=== PATIENT | male | born 1945 | race Caucasian/White ===

== ENCOUNTER 2019-12-05 21:38 | Observation (INO) ==
[2019-12-05] MEDS ORDERED: Aspirin 81 MG TAB.CHEW PO ONE (21:51)
[2019-12-05 22:10] LABS: Basophils % 0.2 %; Eosinophils # 0.2 K/mcL (0.0-0.6); Eosinophils % 1.4 %; Hematocrit 36.9 % (37.5-50.1); Hemoglobin 12.2 g/dL (12.9-16.9); Immature Granulocytes % 0.5 % (0-4); Lymphocytes % 9.3 %; Mean Corpuscular HGB Conc 33.1 g/dL (31.6-35.5); Mean Corpuscular Hemoglobin 30.6 pg (28.0-33.3); Mean Corpuscular Volume 92.5 fL (83.0-100.0); Mean Platelet Volume 10.7 fL (9.4-12.4); Monocytes # 0.5 K/mcL (0.0-1.3); Monocytes % 4.5 %; Neutrophils # 9.2 K/mcL (1.6-8.9); Platelet Count 226 K/mcL (140-400); Red Blood Count 3.99 M/mcL (4.19-5.50); Red Cell Distribution Width 12.6 % (11.5-14.5); Segmented Neutrophils % 84.1 %
[2019-12-05 22:18] LABS: INR 1.9; Prothrombin Time 21.9 Seconds (9.4-12.1)
[2019-12-05 22:21] LABS: Activated Partial Thrombo Time 33.1 Seconds (26.0-36.0)
[2019-12-05 22:36] LABS: Calcium 9.1 mg/dL (8.6-10.3); Potassium 4.4 mEq/L (3.5-5.1)
[2019-12-05 22:41] LABS: Troponin I 0.04 ng/mL (< 0.04)
[2019-12-05] MEDS ORDERED: Isovue-370 500 ML BOTTLE IVP ONE (22:44)
[2019-12-05] MEDS ORDERED: 0.9 % Sodium Chloride 1,000 ML IVC ONE (22:44)
[2019-12-06] MEDS ORDERED: Piperacillin/Tazobactam 3.375 GM in Water for inj. (sterile) 20 ML IVP ONE (00:40)
[2019-12-06] MEDS ORDERED: Vancomycin 1,500 MG/265 ML IV.SOLN IVPB ONE (01:00)
[2019-12-06 01:57] LABS: Adenovirus Not Detected (Not Detect); Coronavirus 229E Not Detected (Not Detect); Coronavirus HKU1 Not Detected (Not Detect); Coronavirus NL63 Not Detected (Not Detect); Coronavirus OC43 Not Detected (Not Detect)
[2019-12-06 01:58] LABS: Bordetella Pertussis Not Detected (Not Detect); Chlamydophila pneumoniae Not Detected (Not Detect); Human Metapneumovirus Not Detected (Not Detect); Human Rhinovirus/Enterovirus Not Detected (Not Detect); Influenza A Subtype 2009 H1 Not Detected (Not Detect); Influenza B Not Detected (Not Detect); Mycoplasma pneumoniae Not Detected (Not Detect); Parainfluenza Virus 1 Not Detected (Not Detect); Parainfluenza Virus 2 Not Detected (Not Detect); Parainfluenza Virus 3 Not Detected (Not Detect); Parainfluenza Virus 4 Not Detected (Not Detect); Respiratory Syncytial Virus Not Detected (Not Detect)
[2019-12-06] MEDS ORDERED: Naloxone 0.4 MG/ML INJ IVP PRN (03:03)
[2019-12-06] MEDS ORDERED: 0.9 % Sodium Chloride 1,000 ML IVC SCH (03:15)
[2019-12-06] MEDS ORDERED: Dextrose Gel 15 GM/37.5 ML TUBE PO PRN ×2 (05:15)
[2019-12-06] MEDS ORDERED: *HR* Dextrose 50 % in Water (Vial) 50 ML VIAL IVP PRN (05:15)
[2019-12-06] MEDS ORDERED: D5% in Water 1,000 ML IVC PRN (05:15)
[2019-12-06] MEDS ORDERED: Insulin LISPRO 300 UNITS/3 ML VIAL SQ SCH ×2 (06:00→21:00)
[2019-12-06] MEDS: Azithromycin 500 MG in 0.9 % Sodium Chloride 250 ML IVPB SCH (06:20)
[2019-12-06 06:24] LABS: Basophils % 0.1 %; Eosinophils # 0.2 K/mcL (0.0-0.6); Eosinophils % 2.1 %; Hematocrit 35.7 % (37.5-50.1); Hemoglobin 11.7 g/dL (12.9-16.9); Immature Granulocytes % 0.6 % (0-4); Lymphocytes # 0.8 K/mcL (0.6-4.6); Lymphocytes % 9.8 %; Mean Corpuscular HGB Conc 32.8 g/dL (31.6-35.5); Mean Corpuscular Hemoglobin 30.4 pg (28.0-33.3); Mean Corpuscular Volume 92.7 fL (83.0-100.0); Mean Platelet Volume 10.5 fL (9.4-12.4); Monocytes # 0.3 K/mcL (0.0-1.3); Neutrophils # 6.9 K/mcL (1.6-8.9); Platelet Count 183 K/mcL (140-400); Red Blood Count 3.85 M/mcL (4.19-5.50); Red Cell Distribution Width 12.7 % (11.5-14.5); Segmented Neutrophils % 83.4 %; White Blood Count 8.3 K/mcL (4.3-11.1)
[2019-12-06 06:51] LABS: Troponin I 0.04 ng/mL (< 0.04)
[2019-12-06] MEDS ORDERED: Dexamethasone 4 MG/ML VIAL IVP SCH (09:00)
[2019-12-06] MEDS ORDERED: Perflutren Lipid Microsphere 1.3 ML in 0.9 % Sodium Chloride 8.7 ML IVP PRN (09:38)
[2019-12-06] MEDS: Piperacillin/Tazobactam 3.375 GM in 0.9 % Sodium Chloride Mini Bag 100 ML IVPB SCH ×3 (09:46→23:17)
[2019-12-06] MEDS ORDERED: Furosemide 40 MG/4 ML VIAL IVP ONE (11:08)
[2019-12-06] MEDS: Insulin LISPRO 300 UNITS/3 ML VIAL SQ SCH ×2 (13:00→17:00)
[2019-12-06] MEDS: carvediloL 25 MG TABLET PO SCH (17:00)
[2019-12-06] MEDS ORDERED: *HR* Rivaroxaban 10 MG TABLET PO SCH (17:00)
[2019-12-06] MEDS ORDERED: Aspirin Enteric Coated 81 MG Tablet PO SCH (18:00)
[2019-12-06 18:26] VITALS: BP 139/73
[2019-12-06] MEDS: Apixaban 5 MG TABLET PO SCH (21:58)
[2019-12-06] MEDS: Gabapentin 300 MG CAPSULE PO SCH (21:58)
[2019-12-06] MEDS ORDERED: Melatonin 3 MG TABLET PO PRN (22:47)
[2019-12-06] MEDS ORDERED: Acetaminophen 325 MG TABLET PO ONE (22:50)
[2019-12-07] MEDS ORDERED: Vancomycin 1,250 MG/262.5 ML IV.SOLN IVPB SCH (01:00)
[2019-12-07] MEDS: Azithromycin 500 MG in 0.9 % Sodium Chloride 250 ML IVPB SCH (05:12)
[2019-12-07 08:02] LABS: Alanine Aminotransferase 15 Units/L (7-52); Albumin 3.5 g/dL (3.5-5.7); Albumin/Globulin Ratio 1.3 (1.1-2.2); Alkaline Phosphatase 53 Units/L (34-104); Aspartate Amino Transferase 24 Units/L (13-39); BUN/Creatinine Ratio 23 (6-26); Bilirubin,Total 0.8 mg/dL (0.3-1.0); Blood Urea Nitrogen 30 mg/dL (8-23); Calcium 8.8 mg/dL (8.6-10.3); Carbon Dioxide 18 mEq/L (23-29); Chloride 104 mEq/L (98-107); Ferritin 1102 ng/mL (20-250); Globulin 2.8 g/dL (2.4-3.5); Glucose 99 mg/dL (70-105); Lactate Dehydrogenase 234 Units/L (140-271); Osmolality,Calculated 284 (280-300); Potassium 4.1 mEq/L (3.5-5.1); Sodium 134 mEq/L (136-145); Total Protein 6.3 g/dL (6.4-8.9); eGFR For African Americans > 60 (> 60); eGFR For Non-African Americans 53 (> 60)
[2019-12-07] MEDS: Piperacillin/Tazobactam 3.375 GM in 0.9 % Sodium Chloride Mini Bag 100 ML IVPB SCH (08:48)
[2019-12-07] MEDS: Apixaban 5 MG TABLET PO SCH (08:49)
[2019-12-07] MEDS: Gabapentin 300 MG CAPSULE PO SCH (08:49)
[2019-12-07] MEDS: Insulin LISPRO 300 UNITS/3 ML VIAL SQ SCH (09:00)
[2019-12-07] MEDS ORDERED: Furosemide 40 MG TABLET PO SCH (09:00)
[2019-12-07] MEDS ORDERED: Furosemide 20 MG/2 ML VIAL IVP SCH (09:00)
[2019-12-07] MEDS: carvediloL 25 MG TABLET PO SCH (09:21)
[2019-12-07 09:28] LABS: C-Reactive Protein 84 mg/L (Less than 10)
== END 2019-12-07 17:30 | disposition home or self-care (01) ==
LOC: 2NENU 21:38 → EMEROOARM 21:38 → SUATTDRO 12-06 02:01 → 2NENU 12-06 02:40
PROVIDERS: ADMIT Student in an Organized Health Care Education/Training Program; ATTEND Student in an Organized Health Care Education/Training Program